=== PATIENT | female | born 1990 | race Caucasian/White ===

== ENCOUNTER → 2017-02-14 | Outpatient (CLI) | payer OTHER ==
--- NOTE | 2017-02-14 16:08 | CT ---
EXAMINATION TYPE: CT brain wo con DATE OF EXAM: 02/14/2017 4:01 PM COMPARISON: NONE HISTORY: Pt states of "tunnel vision" and bilateral hand numbness x1 week. CT DLP: 963.6 mGycm Automated exposure control for dose reduction was used. FINDINGS: Central structures are midline. There is no evidence of hydrocephalus. No acute focal lesio n, mass effect or midline shift is seen. I do not see evidence of intracranial blood. Visualized portions of the paranasal sinuses and mastoids are clear. There is no depressed skull frac ture. IMPRESSION: NORMAL CT SCAN OF THE BRAIN.
== END | disposition home or self-care (01) ==
LOC: RADCTMAIN 15:43
PROVIDERS: ATTEND Family Medicine
DX: H53.9 Unspecified visual disturbance (principal); R20.2 Paresthesia of skin
CPT/HCPCS: 70450

== ENCOUNTER → 2017-03-18 | Outpatient (CLI) | payer OTHER ==
--- NOTE | 2017-03-18 10:55 | US ---
EXAMINATION TYPE: US transvaginal DATE OF EXAM: 03/18/2017 7:23 AM COMPARISON: NONE CLINICAL HISTORY: R10.2 Pelvic and perineal pain. Pelvic pain, IUD placement 2 years ago TECHNIQUE: Transvaginal (TV) Date of LMP: 2 years ago EXAM MEASUREMENTS: Uterus: 7.9 x 4.0 x 4.9 cm Endometrial Stripe: 0.3 cm Right Ovary: 3.1 x 1.9 x 1.9 cm Left Ovary: 2.8 x 1.9 x 2.1 cm 1. Uterus: Anteverted Nabothian cyst 2. Endometrium: IUD visualized within body of uterus 3. Right Ovary: complex cystic area = 1.0cm 4. Left Ovary: Cyst = 1.4cm 5. Bilateral Adnexa: prominent vascularity noted bilateral adnexa 6. Posterior cul-de-sac: small amount of free fluid IMPRESSION: 1. 1.4 cm left ovarian cyst. 2. 1.0 cm complex cyst with septation right ovary versus adjacent follicles. Follow-up is recommended . 3. IUD is within the uterus.
== END | disposition home or self-care (01) ==
LOC: RADUSWWP 07:03
PROVIDERS: ATTEND Obstetrics & Gynecology
DX: N83.202 Unspecified ovarian cyst, left side (principal); N83.201 Unspecified ovarian cyst, right side; R10.2 Pelvic and perineal pain; Z97.5 Presence of (intrauterine) contraceptive device
CPT/HCPCS: 76830

== ENCOUNTER → 2017-05-09 | Outpatient (CLI) | payer OTHER ==
--- NOTE | 2017-05-09 07:48 | US ---
EXAMINATION TYPE: US transvaginal DATE OF EXAM: 05/09/2017 COMPARISON: Previous study dated 03/18/2017. CLINICAL HISTORY: Complex cyst of the right ovary N83. TECHNIQUE: Transvaginal (TV) Date of LMP: 2013, due to IUD EXAM MEASUREMENTS: Uterus: 8.6 x 3.7 x 5.8 cm Endometrial Stripe: 0.4 cm Right Ovary: 3.9 x 1.9 x 2.4 cm Left Ovary: 3.5 x 1.5 x 3.0 cm 1. Uterus: Anteverted wnl 2. Endometrium: measures 0.4 cm, no cycles 3. Right Ovary: multiple follicles, largest measures 1.3 cm 4. Left Ovary: wnl 5. Bilateral Adnexa: wnl 6. Posterior cul-de-sac: wnl An IUD is seen within the endometrial canal in normal position. IMPRESSION: NORMAL PELVIC ULTRASOUND.
== END | disposition home or self-care (01) ==
LOC: RADUSWWP 07:03
PROVIDERS: ATTEND Obstetrics & Gynecology
DX: N83.291 Other ovarian cyst, right side (principal)
CPT/HCPCS: 76830

== ENCOUNTER 2019-01-14 06:00 | Inpatient (IN) | payer BC ==
[2019-01-14] MEDS ORDERED: LIDOCAINE 0.5% (PF) 5 MG/ML (50 ML SDV) SQ PRN (06:27)
[2019-01-14] MEDS ORDERED: OXYTOCIN 10 UNIT/ML 1 ML VIAL IM PRN (06:27)
[2019-01-14] MEDS ORDERED: METHYLERGONOVINE 0.2 MG/ML 1 ML AMP IM PRN (06:27)
[2019-01-14] MEDS ORDERED: CARBOPROST TROMETHAMINE 250 MCG/ML 1 ML AMP IM PRN (06:27)
[2019-01-14] MEDS ORDERED: TERBUTALINE 1 MG/ML VIAL SQ PRN (06:27)
[2019-01-14] MEDS ORDERED: OXYTOCIN 30 UNITS/500 ML NS 30 UNIT in SALINE 1 500ML.BAG IV SCH (06:30)
[2019-01-14] MEDS: LACTATED RINGERS 1,000 ML IV SCH ×2 (06:48→14:04)
[2019-01-14 06:54] VITALS: BMI 29.2
[2019-01-14 07:02] LABS: Basophils % (A) 0 %; Eosinophils % (A) 0 %; HCT 28.9 % (34.0-46.0); HGB 9.8 gm/dL (11.4-16.0); Hypochromasia Slight; Lymphocytes # (A) 1.5 k/uL (1.0-4.8); Lymphocytes % (A) 18 %; MCH 27.1 pg (25.0-35.0); MCHC 33.8 g/dL (31.0-37.0); MCV 80.2 fL (80.0-100.0); Mean Platelet Volume 8.9; Monocytes # (A) 0.3 k/uL (0-1.0); Monocytes % (A) 4 %; Neutrophils # (A) 6.4 k/uL (1.3-7.7); Neutrophils % (A) 77 %; Platelet Count 181 k/uL (150-450); Poikilocytosis Moderate; RDW 15.4 % (11.5-15.5); WBC 8.4 k/uL (3.8-10.6)
[2019-01-14] MEDS ORDERED: BUTORPHANOL 1 MG/ML 1 ML VIAL IV PRN (11:22)
[2019-01-14] MEDS ORDERED: ROPIVACAINE 5MG/ML 20ML VIAL ONE (13:55)
[2019-01-14] MEDS ORDERED: fentaNYL (PF) 50 MCG/ML 5 ML AMP ONE (13:55)
[2019-01-14] MEDS ORDERED: SODIUM CHLORIDE 0.9% 100 ML BAG ONE (13:55)
[2019-01-14] MEDS ORDERED: diphenhydrAMINE 50 MG/ML 1 ML VIAL IVP PRN ×2 (15:09)
[2019-01-14] MEDS ORDERED: HYDROcodone/APAP 5-325MG 1 EACH TAB PO PRN (15:09)
[2019-01-14] MEDS ORDERED: ACETAMINOPHEN TAB 325 MG TAB PO PRN (15:09)
[2019-01-14] MEDS ORDERED: BENZOCAINE/MENTHOL SPRAY 1 GM/SPRAY AEROSOL TOPICAL PRN (15:09)
[2019-01-14] MEDS ORDERED: ZOLPIDEM 5 MG TAB PO PRN (15:09)
[2019-01-14] MEDS ORDERED: SIMETHICONE 80 MG CHEWABLE PO PRN (15:09)
[2019-01-14] MEDS ORDERED: diphenhydrAMINE 25 MG CAP PO PRN (15:09)
[2019-01-14] MEDS ORDERED: diphenhydrAMINE 50 MG CAP PO PRN (15:09)
[2019-01-14] MEDS ORDERED: HYDROCORTISONE 2.5% RECTAL CREAM 30 GM TUBE RECTAL PRN (15:09)
[2019-01-14] MEDS ORDERED: WITCH HAZEL 1 EACH MED..PAD TOPICAL PRN (15:09)
[2019-01-14] MEDS ORDERED: LANOLIN CREAM 5 GM TUBE TOPICAL PRN (15:09)
[2019-01-14] MEDS ORDERED: IBUPROFEN 600 MG TAB PO PRN (15:09)
--- NOTE | 2019-01-14 15:12 | P.HPOB ---
History of Present Illness H&P Date: 01/14/19 Chief Complaint: IUP at 39 0/sevenths weeks This is a very pleasant 28-year-old 3 para 2001 at 39-0/7 weeks that presents for elective induction of labor. Patient has had an uncomplicated course with myself since the first trimester. Patient is known posit terri for syphilis and we have been monitoring her RPR clots which are going down since treatment was done without murmur last year. On blood work her blood tubes noted to be O-, rubella is noted to be immune RPR reactive as stated above, hepatitis B surface antigen is negative, HIV negative, she did pass her 1 hour Glucola on 10/28. She received RhoGAM on 122 as well her been strep was noted to be negative on 12/23/18 Review of Systems Constitutional: Denies chills, Denies fatigue, Denies fever Ears, nose, mouth and throat: Denies headache Cardiovascular: Reports leg edema Respiratory: Denies dyspnea Gastrointestinal: Denies constipation, Denies diarrhea, Denies nausea, Denies vomiting Genitourinary: Reports Past Medical History Past Medical History: No Reported History History of Any Multi-Drug Resistant Organisms: None Reported Additional Past Surgical History / Comment(s): Oral surgery Past Anesthesia/Blood Transfusion Reactions: No Reported Reaction Past Psychological History: Anxiety Smoking Status: Never smoker Past Alcohol Use History: None Reported Past Drug Use History: None Reported - Past Family History Father Family Medical History: No Reported History Medications and Allergies Allergies Allergy/AdvReac Type Severity Reaction Status Date / Time shellfish derived [Crab] Allergy Itching Verified 01/14/19 06:21 Exam Osteopathic Statement: *. No significant issues noted on an osteopathic structural exam other than those noted in the History and Physical/Consult. Vital Signs Temp Pulse Resp BP Pulse Ox 01/14/19 06:18 97.6 F 106 H 16 124/72 100 Intake and Output 01/13/19 01/14/19 01/14/19 22:59 06:59 14:59 Other: Weight 84.822 kg In general this is a well-nourished well-developed female in no acute distress. She is noted to have nonlabored breathing is noted have regular rate and rhythm, her abdomen is noted to be gravid and appropriate for gestational age. Lungs are reactive and she is franchesca about every 3 minutes, on cervical exam she is noted to be 4/70/-2 amniotomy is performed and clear fluid was obtained. Results Result Diagrams: 01/14/19 06:53 Abnormal Lab Results - Last 24 Hours (Table) 01/14/19 Range/Units 06:53 RBC 3.60 L (3.80-5.40) m/uL Hgb 9.8 L (11.4-16.0) gm/dL Hct 28.9 L (34.0-46.0) % Assessment and Plan (1) Term Current Visit: Yes Status: Acute Code(s): Z34.80 - ENCOUNTER FOR SUPRVSN OF NORMAL , UNSP TRIMESTER SNOMED Code(s): 58614183 (2) Syphilis Current Visit: Yes Status: Acute Code(s): A53.9 - SYPHILIS, UNSPECIFIED SNOMED Code(s): 66330458 Plan: Patient is admitted to labor and delivery for Pitocin induction of labor. She declines epidural at this time will order Stadol as needed. Anticipate spontaneous vaginal delivery.
--- NOTE | 2019-01-14 15:12 | P.PROBDLV ---
Vaginal Delivery Note - . Vaginal Delivery Note: This is a very pleasant 28-year-old 3 para 2001 at 39-0/7 weeks that presented to labor and delivery for elective induction of labor. Pitocin induction of labor was begun, after regular contractions were noted amniotomy was performed and clear fluid was obtained. Patient pressed through labor eventually becoming uncomfortable and received 1 dose of Stadol and then an epidural which was placed by anesthesia without difficulty. Patient progressed to complete began pushing and had a normal spontaneous vaginal delivery of a viable female infant at 1458 weight is pending as is on maternal chest for bonding. Apgars were noted to be 8 and 9 at one and 5 minutes respectively. After a two-minute delayed the umbilical cord was doubly clamped and cut and the infant was handed off to mom. The placenta was then delivered spontaneously intact with a three-vessel cord being noted. On inspection the patient's vaginal vault no lacerations were noted the uterus is noted to be firm and below the umbilicus estimated blood loss 300 mL. Patient and tolerated delivery well and are resting comfortably.
[2019-01-14] MEDS ORDERED: OXYTOCIN 20 UNITS/1000 ML NS 1,000 ML IV SCH (15:15)
[2019-01-14 17:53] VITALS: RESP 16
[2019-01-15] MEDS: SENNOSIDES-DOCUSATE SODIUM 1 EACH TAB PO SCH ×2 (00:15→08:42)
[2019-01-15 06:41] LABS: Basophils % (A) 0 %; Eosinophils % (A) 0 %; HCT 26.7 % (34.0-46.0); HGB 8.5 gm/dL (11.4-16.0); Hypochromasia Moderate; Lymphocytes # (A) 1.6 k/uL (1.0-4.8); Lymphocytes % (A) 18 %; MCH 25.8 pg (25.0-35.0); MCHC 31.7 g/dL (31.0-37.0); MCV 81.2 fL (80.0-100.0); Mean Platelet Volume 9.8; Monocytes # (A) 0.4 k/uL (0-1.0); Monocytes % (A) 5 %; Neutrophils # (A) 6.7 k/uL (1.3-7.7); Neutrophils % (A) 76 %; Platelet Count 163 k/uL (150-450); Poikilocytosis Moderate; RBC 3.29 m/uL (3.80-5.40); RDW 15.4 % (11.5-15.5); WBC 8.8 k/uL (3.8-10.6)
--- NOTE | 2019-01-15 08:28 | P.DS ---
Providers Date of admission: 01/14/19 06:14 Expected date of discharge: 01/15/19 Attending physician: Cortney Lazaro Primary care physician: Stated None - Discharge Diagnosis(es) (1) Term Current Visit: Yes Status: Acute (2) Syphilis Current Visit: Yes Status: Acute (3) Status post vaginal delivery Current Visit: Yes Status: Acute Hospital Course: This is a very pleasant 28-year-old 3 para 2000 at 39-0/7 weeks that presented to labor and delivery on 01/14 for elective induction of labor. Pitocin induction of labor was begun after regular contractions were noted amniotomy is performed and clear fluid was obtained. Patient progressed through labor and received 1 dose of Stadol followed by an epidural which was placed without difficulty by the anesthesia department. She began pushing and had a normal spontaneous vaginal delivery of a viable female infant at 1458, weight of 9 lbs. 2 oz. with Apgars of 8 and 9 at one and 5 minutes respectively. No vaginal lacerations were sustained during the delivery of this infant. Patient's course has been uneventful. She is ambulating and voiding without difficulty. She is tolerating a regular diet without nausea or vomiting. She is breast-feeding. She does wish discharge home at 24 hours. Plan - Discharge Summary Follow up Appointment(s)/Referral(s): Cortney Lazaro DO [Doctor of Osteopathic Medicine] - 4 Weeks Patient Instructions/Handouts: Vaginal Delivery (DC), Vaginal Delivery (GEN) Discharge Disposition: HOME SELF-CARE
[2019-01-15 16:15] VITALS: BP 125/80; PULSE 80; TEMP 98.4
== END 2019-01-15 16:20 | disposition home or self-care (01) | DRG 807 ==
LOC: 4FBP 06:14
PROVIDERS: ADMIT Obstetrics & Gynecology Obstetrics; ATTEND Obstetrics & Gynecology Obstetrics
PROC: 10E0XZZ Delivery of Products of Conception, External Approach (ICD-10-PCS; principal; 2019-01-14)
PROC: 10907ZC Drainage of Amniotic Fluid, Therapeutic from Products of Conception, Via Natural or Artificial Opening (ICD-10-PCS; 2019-01-14)
PROC: 3E033VJ Introduction of Other Hormone into Peripheral Vein, Percutaneous Approach (ICD-10-PCS; 2019-01-14)
PROC: 00HU33Z Insertion of Infusion Device into Spinal Canal, Percutaneous Approach (ICD-10-PCS; 2019-01-14)
PROC: 3E0R3BZ Introduction of Anesthetic Agent into Spinal Canal, Percutaneous Approach (ICD-10-PCS; 2019-01-14)
DX: O98.12 Syphilis complicating childbirth (principal); Z37.0 Single live birth; O99.344 Other mental disorders complicating childbirth; F41.9 Anxiety disorder, unspecified; Z3A.39 39 weeks gestation of pregnancy; Z91.013 Allergy to seafood
CPT/HCPCS: 85025; 86592; 86780; 86850; 86900; 86901